=== PATIENT | female | born 1965 | race Caucasian/White ===

== ENCOUNTER 2021-04-26 14:57 | Emergency (ER) | payer OTHER, SELFPAY ==
[2021-04-26 15:02] VITALS: BP 124/75; PULSE 91; RESP 16; TEMP 36.5; O2SAT 98
--- NOTE | 2021-04-26 15:15 | ED.WOUNDLAC ---
HPI - Wound/Laceration General Chief Complaint: Wound/Laceration Stated Complaint: left big toe Source: patient Mode of arrival: ambulatory Limitations: no limitations History of Present Illness HPI narrative: Patient is a 56-year-old female who presents with injury to the left great toe. Patient reports dropping large pedestal on the left foot yesterday afternoon. Patient reports pain to left great toe. Full range of motion noted. Patient noted to have subungual hematoma. She reports tetanus up-to-date. She denies all other complaints at this time. Patient is a currently on Eliquis for the past 2 weeks. Related Data Home Medications Medication Instructions Recorded Confirmed cholecalciferol (vitamin D3) 1,250 1,250 mcg PO WEEKLY 05/08/20 04/26/21 mcg (50,000 unit) capsule folic acid 1 mg tablet 1 mg PO DAILY 05/08/20 04/26/21 meloxicam 7.5 mg tablet 7.5 mg PO DAILY 05/08/20 04/26/21 methotrexate 2.5 mg/mL oral 5 mg PO DAILY 05/08/20 04/26/21 solution montelukast 10 mg tablet 10 mg PO DAILY 05/08/20 04/26/21 tizanidine 4 mg capsule 4 mg PO TID 05/08/20 04/26/21 tramadol 100 mg capsule 100 mg PO DAILY 05/08/20 04/26/21 24h,extended release(25-75) apixaban [Eliquis] 5 mg PO BID 04/26/21 04/26/21 diltiazem HCl 120 mg PO DAILY 04/26/21 04/26/21 Allergies Allergy/AdvReac Type Severity Reaction Status Date / Time adhesive Allergy Unknown Rash Verified 04/26/21 15:11 erythromycin base Allergy Unknown Rash Verified 04/26/21 15:11 Review of Systems Review of Systems: Narrative: CONSTITUTIONAL: Denies fever, chills, or sweats. EYES: Denies visual changes, redness, or discharge. ENT: Denies rhinorrhea, congestion, sore throat, or otalgia. CARDIOVASCULAR: Denies chest pain, palpitations, or edema. RESPIRATORY: Denies cough or dyspnea. GASTROINTESTINAL: Denies abdominal pain, nausea, vomiting, or diarrhea. GENITOURINARY: Denies dysuria or hematuria. SKIN: Denies rash or itching. MUSCULOSKELETAL: Denies back pain, joint pain, or myalgia. NEUROLOGIC: Denies headache, numbness, dizziness, or weakness. PSYCHIATRIC: Denies anxiety or depression. [facility] Past Medical History Medical History Anemia Asthma History of torn meniscus of right knee HSV (herpes simplex virus) infection Vaginal delivery x 2 Surgical History Surgical History H/O sinus surgery x 2 History of appendectomy History of right oophorectomy S/P endometrial ablation Family History Family History Father Diabetes mellitus Hypertension Mother Cerebrovascular accident Social History Social History Smoking status: Never smoker Alcohol intake: current Comments At the time of signature, I have reviewed and agree with nursing past medical, surgical, social, and family history unless otherwise noted. Please see nursing chart for further information. There is no relevant family history pertinent to the presenting complaint. Exam Narrative: Exam Narrative: GENERAL: Well-appearing, well-nourished, and in no acute distress. HEAD: Normocephalic, atraumatic. EYES: EOMI. No redness or drainage. Conjunctiva are normal. ENT: Mucous membranes pink and moist. CHEST: No respiratory distress. Clear to auscultation. HEART: Regular rate and rhythm. EXTREMITIES: Normal range of motion. No edema. SKIN: Subungual hematoma noted to left great toe NEURO: No focal deficits. Alert and oriented x3. Gait steady. PSYCH: Normal affect. No signs of depression or anxiety. Procedures Nail Trephination Nail Trephination #1: Nail Trephination Date: 04/26/21 Nail Trephination Time: 15:18 Time out: Yes Location (toes): first digit Sterile prep: betadine Method of drainage: nail cautery Procedure suc
== END 2021-04-26 15:32 | disposition home or self-care (01) ==
PROVIDERS: Emergency Provider Nurse Practitioner; PCP Internal Medicine
DX: S90.212A Contusion of left great toe with damage to nail, initial encounter (principal); W20.8XXA Other cause of strike by thrown, projected or falling object, initial encounter; J45.909 Unspecified asthma, uncomplicated
CPT/HCPCS: 11740; 99212; G0463

== ENCOUNTER 2023-08-04 15:00 | Outpatient (CLI) | payer BC, SELFPAY | END 2023-08-04 15:01 | disposition home or self-care (01) | LOC: ANHBWCLAB 15:02 | PROVIDERS: PCP Internal Medicine; Visit Provider Registered Nurse | DX: E04.9 Nontoxic goiter, unspecified (principal); R68.82 Decreased libido | CPT/HCPCS: 36415; 84443 ==